=== PATIENT | male | born 1960 | race Caucasian/White ===

== ENCOUNTER → 2016-04-15 | Outpatient (CLI) | payer OTHER ==
--- NOTE | 2016-04-15 18:21 | DX ---
Chest, PA and Lateral Views - April 15, 2016, at 4:05 p.m. Clinical History: 55-year-old male with shortness of breath for one year. ICD-10 Diagnostic Code: R06.02. Comparison Study: None. Findings: The patient has had a prior ORIF of the right femur with placement of a malleable reconstru ction plate secured by multiple orthopedic screws (incompletely imaged). The cardiac and mediastinal silhouettes are normal in size. There is some mild central perihilar bronchial wall thickening. There is attenuation of the upper lobe vasculature, which may reflect some underlying COPD. The trachea is midline. There is no focal alveolar consolidation, pleural effusion, peripheral interstitial edema, or pneumothorax. There are some degenerative features of the spine, with minor ventral concavities at lower thoracic levels. Impression: Lung hyperexpansion with mild central perihilar bronchial thickening, but no focal infil trate.
== END ==
LOC: BMCIMAGING 16:07
PROVIDERS: ATTEND Internal Medicine
DX: R06.02 Shortness of breath (principal)

== ENCOUNTER 2018-03-13 16:50 | Observation (INO) | payer OTHER ==
--- NOTE | 2018-03-13 17:02 | EDPHY ---
H & P Smoking Status: Never smoked Time Seen by Provider: 03/13/18 16:59 HPI/ROS: CHIEF COMPLAINT: Blood loss after colonoscopy HISTORY OF PRESENT ILLNESS: The patient is a 57-year-old male sent here status post colonoscopy earlier today for observation after he developed large bleeding after his colonoscopy today. States that he had a colonoscopy done today for blood seen in his stool earlier this month. He is on no blood thinners. According to the patient there was a suspicious polyp that was removed. He was discharged home and within an hour pain discharge he had large amounts of bright red blood per rectum I return to see his polishing machine operator helper to proceeded to clip the area that was bleeding. Also according to the patient he had lost at least 1 unit of blood and developed hypotension with a systolic blood pressure in the mid 60s. He developed no chest pain or shortness of breath or dizziness. He was sent here for observation overnight in the hospital and continued monitoring of his rectal bleeding. REVIEW OF SYSTEMS: Constitutional: No fever, no chills. Eyes: No discharge. ENT: No sore throat. Cardiovascular: No chest pain, no palpitations. Respiratory: No cough, no shortness of breath. Gastrointestinal: No abdominal pain, no vomiting. Genitourinary: No hematuria. Musculoskeletal: No back pain. Skin: No rashes. Neurological: No headache. (Vitaly Stroud) Physical Exam: General Appearance: Alert and no distress. ENT: normal dentition. No tonsillar exudate or swelling. Eyes: Pupils equal and round no injection. Respiratory: Chest is nontender, lungs are clear to auscultation. Cardiac: regular rate and rhythm. No lower extremity edema Gastrointestinal: Abdomen is soft and nontender, no masses, bowel sounds normal. Musculoskeletal: Neck is supple and nontender. Extremities have full range of motion and are nontender without deformity Skin: No rashes or lesions. Neuro: Cranial nerves grossly intact. No nystagmus. (Vitaly Stroud) Constitutional: Initial Vital Signs Temperature (C) 36.6 C 03/13/18 16:55 Heart Rate 103 H 03/13/18 16:55 Respiratory Rate 20 03/13/18 16:55 Blood Pressure 108/70 03/13/18 16:55 O2 Sat (%) 95 03/13/18 16:55 O2 Delivery Mode Room Air Allergies/Adverse Reactions: No Known Allergies Allergy (Unverified 03/13/18 16:57) Home Medications: Medication Instructions Recorded NK [No Known Home Meds] 03/13/18 Medical Decision Making ED Course/Re-evaluation: 57-year-old male sent here from his polishing machine operator helper for admission status post bleeding complication from colonoscopy. His blood pressure remained stable from 98-108 systolic. He was mildly tachycardic but labs showed no acute anemia. Type and screen was obtained in the emergency room. He was admitted for observation. He had no continued bleeding during his stay in the ER. (Vitaly Stroud) Differential Diagnosis: Coagulopathy, GI bleed, bowel perforation, coagulopathy (Vitaly Stroud) Other Provider: PHYSICIAN DOCUMENTATION: The patient was evaluated and managed by the [employer] [employer]. My co- signature indicates that I have reviewed this chart and I agree with the findings and plan of care as documented. I am the secondary supervising physician. (Abdoul Caal) - Data Points Laboratory Results: Laboratory Results 03/13/18 17:31 03/13/18 17:31 03/13/18 03/13/18 03/13/18 17:31 17:31 17:31 WBC 9.87 10^3/uL H 10^3/uL (3.80-9.50) RBC 4.48 10^6/uL 10^6/uL (4.40-6.38) Hgb 14.4 g/dL g/dL (13.7-17.5) Hct 41.1 % % (40.0-51.0) MCV 91.7 fL fL (81.5-99.8) MCH 32.1 pg pg (27.9-34.1) MCHC 35.0 g/dL g/dL (32.4-36.7) RDW 12.3 % % (11.5-15.2) Plt Count 295 10^3/uL 10^3/uL (150-400) MPV 8.7 fL fL (8.7-11.7) Neut % (Auto) 78.3 % H % (39.3-74.2) Lymph % (Auto) 16.1 % % (15.0-45.0) [place] % (Auto) 5.1 % % (4.5-13.0) Eos % (Auto) 0.2 % L % (0.6-7.6) Baso % (Auto) 0.1 % L % (0.3-1.7) Nucleat RBC Rel Count 0.0 % % (0.0-0.2) Absolute Neuts (auto) 7.73 10^3/uL H 10^3/uL (1.70-6.50) Absolute Lymphs (auto) 1.59 10^3/uL 10^3/uL (1.00-3.00) Absolute Monos (auto) 0.50 10^3/uL 10^3/uL (0.30-0.80) Absolute Eos (auto) 0.02 10^3/uL L 10^3/uL (0.03-0.40) Absolute Basos (auto) 0.01 10^3/uL L 10^3/uL (0.02-0.10) Absolute Nucleated RBC 0.00 10^3/uL 10^3/uL (0-0.01) Immature Gran % 0.2 % % (0.0-1.1) Immature Gran # 0.02 10^3/uL 10^3/uL (0.00-0.10) Sodium 138 mEq/L mEq/L (135-145) Potassium 3.8 mEq/L mEq/L (3.5-5.2) Chloride 115 mEq/L H mEq/L (97-110) Carbon Dioxide 19 mEq/l L mEq/l (22-31) Anion Gap 4 mEq/L L mEq/L (6-14) BUN 14 mg/dL mg/dL (7-23) Creatinine 0.7 mg/dL mg/dL (0.7-1.3) Estimated GFR > 60 Glucose 101 mg/dL H mg/dL (70-100) Calcium 7.2 mg/dL L mg/dL (8.5-10.4) Patient ABO/Rh O POSITIVE Antibody Screen NEGATIVE 03/13/18 03/13/18 17:12 17:12 WBC TNP RBC TNP Hgb TNP Hct TNP MCV TNP MCH TNP MCHC TNP RDW TNP Plt Count TNP MPV TNP Neut % (Auto) TNP Lymph % (Auto) TNP [place] % (Auto) TNP Eos % (Auto) TNP Baso % (Auto) TNP Nucleat RBC Rel Count TNP Absolute Neuts (auto) TNP Absolute Lymphs (auto) TNP Absolute Monos (auto) TNP Absolute Eos (auto) TNP Absolute Basos (auto) TNP Absolute Nucleated RBC TNP Immature Gran % TNP Immature Gran # TNP Sodium TNP Potassium TNP Chloride TNP Carbon Dioxide TNP Anion Gap TNP BUN TNP Creatinine TNP Estimated GFR TNP Glucose TNP Calcium TNP Patient ABO/Rh Antibody Screen Medications Given: Discontinued Medications Sodium Chloride (Ns) 1,000 mls @ 3,000 mls/hr IV ONCE ONE Stop: 03/13/18 19:10 Last Admin: 03/13/18 19:23 Dose: 1,000 mls Departure - Departure Disposition: [facility] In[facility] Acute Condition: Good
[2018-03-13 17:46] LABS: PLATELET COUNT 295 10^3/uL (150-400)
[2018-03-13] MEDS ORDERED: HYDROCODONE/APAP 5/325 TAB PO PRN (18:50)
[2018-03-13] MEDS ORDERED: ONDANSETRON DISINTEGRATING 4 MG TAB PO PRN (18:50)
[2018-03-13] MEDS ORDERED: ACETAMINOPHEN 325 MG TAB PO PRN (18:50)
[2018-03-13] MEDS ORDERED: ONDANSETRON 4 MG/2 ML VIAL IVP PRN (18:50)
[2018-03-13] MEDS ORDERED: NS 1,000 ML IV ONE (18:51)
--- NOTE | 2018-03-13 21:05 | PDGENHP ---
History and Physical - Chief Complaint bleeding from rectum - History of Present Illness 57 yo M with recent issues of GI bleeding for which he underwent colonoscopy today with Dr. Luna presenting after having some post colonoscopy bleeding. The bleeding began relatively shortly after the procedure was performed and for that reason a repeat scope was performed which revealed bleeding at the site of a sigmoid colon polyp removal. Patient had a total of 8 polyps removed, 2 of which were large, and one of which on repeat look appeared to be actively bleeding. A clip was placed, hemostasis achieved however concern that patient had lost a large amount of blood led to a decision to have him monitored overnight. At the time of my evaluation patient states he is unhappy he is here , is uncomfortable in the bed he is lying in and wants to eat but otherwise feels fine. History Information - Allergies/Home Medication List Allergies/Adverse Reactions: No Known Allergies Allergy (Unverified 03/13/18 16:57) Home Medications: NK [No Known Home Meds] 03/13/18 [Last Taken Unknown] I have personally reviewed and updated: family history, medical history, social history, surgical history - Past Medical History no pertinent PMH - Surgical History Reports: no pertinent surgical hx - Family History Positive for: non-pertinent - Social History Smoking Status: Never smoked Alcohol Use: Rarely Drug Use: None Additional social history: Review of Systems Review of Systems: ROS: 10pt was reviewed & negative except for what was stated in HPI & below Physical Exam Physical Exam: Temp Pulse Resp BP Pulse Ox 36.9 C 76 16 115/72 95 03/13/18 20:45 03/13/18 20:45 03/13/18 20:45 03/13/18 20:45 03/13/18 20:45 Constitutional: no apparent distress, appears nourished Eyes: PERRL Ears, Nose, Mouth, Throat: moist mucous membranes Cardiovascular: regular rate and rhythym, no murmur, rub, or gallop Respiratory: no respiratory distress, no rales or rhonchi Gastrointestinal: normoactive bowel sounds, soft, non-tender abdomen Skin: warm, normal color Musculoskeletal: no muscle tenderness Neurologic: AAOx3 Psychiatric: not anxious, not encephalopathic Lab Data & Imaging Review 03/13/18 17:31 03/13/18 17:31 WBC 9.87 10^3/uL (3.80-9.50) H 03/13/18 17:31 RBC 4.48 10^6/uL (4.40-6.38) 03/13/18 17:31 Hgb 14.4 g/dL (13.7-17.5) 03/13/18 17:31 Hct 41.1 % (40.0-51.0) 03/13/18 17:31 MCV 91.7 fL (81.5-99.8) 03/13/18 17:31 MCH 32.1 pg (27.9-34.1) 03/13/18 17:31 MCHC 35.0 g/dL (32.4-36.7) 03/13/18 17:31 RDW 12.3 % (11.5-15.2) 03/13/18 17:31 Plt Count 295 10^3/uL (150-400) 03/13/18 17:31 MPV 8.7 fL (8.7-11.7) 03/13/18 17:31 Neut % (Auto) 78.3 % (39.3-74.2) H 03/13/18 17:31 Lymph % (Auto) 16.1 % (15.0-45.0) 03/13/18 17:31 [place] % (Auto) 5.1 % (4.5-13.0) 03/13/18 17:31 Eos % (Auto) 0.2 % (0.6-7.6) L 03/13/18 17:31 Baso % (Auto) 0.1 % (0.3-1.7) L 03/13/18 17:31 Nucleat RBC Rel Count 0.0 % (0.0-0.2) 03/13/18 17:31 Absolute Neuts (auto) 7.73 10^3/uL (1.70-6.50) H 03/13/18 17:31 Absolute Lymphs (auto) 1.59 10^3/uL (1.00-3.00) 03/13/18 17:31 Absolute Monos (auto) 0.50 10^3/uL (0.30-0.80) 03/13/18 17:31 Absolute Eos (auto) 0.02 10^3/uL (0.03-0.40) L 03/13/18 17:31 Absolute Basos (auto) 0.01 10^3/uL (0.02-0.10) L 03/13/18 17:31 Absolute Nucleated RBC 0.00 10^3/uL (0-0.01) 03/13/18 17:31 Immature Gran % 0.2 % (0.0-1.1) 03/13/18 17:31 Immature Gran # 0.02 10^3/uL (0.00-0.10) 03/13/18 17:31 Sodium 138 mEq/L (135-145) 03/13/18 17:31 Potassium 3.8 mEq/L (3.5-5.2) 03/13/18 17:31 Chloride 115 mEq/L (97-110) H 03/13/18 17:31 Carbon Dioxide 19 mEq/l (22-31) L 03/13/18 17:31 Anion Gap 4 mEq/L (6-14) L 03/13/18 17:31 BUN 14 mg/dL (7-23) 03/13/18 17:31 Creatinine 0.7 mg/dL (0.7-1.3) 03/13/18 17:31 Estimated GFR > 60 03/13/18 17:31 Glucose 101 mg/dL (70-100) H 03/13/18 17:31 Calcium 7.2 mg/dL (8.5-10.4) L 03/13/18 17:31 Patient ABO/Rh O POSITIVE 03/13/18 17:31 Antibody Screen NEGATIVE 03/13/18 17:31 Visualized and Interpreted Chest x-ray results: Yes Chest X-Ray results: no infiltrate Assessment & Plan Assessment: GI bleed (Acute) 57 yo M with PMH of colon polyps s/p colonoscopy today presenting with post colonoscopy bleeding # gi bleed: occurring post colonoscopy and apparently quite heavy, has now resolved. There was evidence of bleeding from polypectomy site which was clipped. Not anemic, HD stable at this time. If no ongoing bleeding overnight will dc in am # colon polyps: s/p removal of 8 polyps during colonoscopy today # hypotension: mild and resolved with IVF, likely from rapid bleed # observation status, will likely dc in am Patient new to my care. Old records reviewed and summarized as above. Care plan reviewed with ER doctor and GI doctor as above. Further hx obtained from patients present at bedside.
[2018-03-14 05:33] LABS: PLATELET COUNT 252 10^3/uL (150-400)
[2018-03-14 08:09] VITALS: BP 117/71
--- NOTE | 2018-03-14 08:34 | PDDCSUM ---
Discharge Summary Discharge Summary: Dates of service: 03/13-03/14/18 Consultations/procedures: none Hospital course by problem: 57 yo M with PMH of colon polyps s/p colonoscopy today presenting with post colonoscopy bleeding # gi bleed: occurring post colonoscopy and apparently quite heavy initially, has now resolved. There was evidence of bleeding from polypectomy site which was clipped. No bleeding overnight # colon polyps: s/p removal of 8 polyps during colonoscopy, will f/u with GI as per routine # hypotension: mild and resolved with IVF, likely from rapid bleed Items for follow up: --path on polyps DC home f/u with PCP and GI > 35 min spent in dc more than half in coordination of care
== END 2018-03-14 11:03 | disposition home or self-care (01) ==
LOC: F3E 20:41
PROVIDERS: ADMIT Internal Medicine; ATTEND Internal Medicine
DX: K91.840 Postprocedural hemorrhage of a digestive system organ or structure following a digestive system procedure (principal); I95.9 Hypotension, unspecified; Z86.010 Personal history of colon polyps
CPT/HCPCS: 96360; 99285; G0378